=== PATIENT | female | born 1995 | race Caucasian/White ===

== ENCOUNTER 2017-12-21 20:31 | Emergency (ER) | payer BC ==
[~2017-12-21] VITALS: Ht 162.6 cm; Wt 58.9 kg
[2017-12-21 20:34] VITALS: BP 117/75
[2017-12-21] MEDS ORDERED: LIDOCAINE 1%, 10ML INFIL ONE (21:00)
[2017-12-21] MEDS ORDERED: LIDOCAINE-MPF 2%, 2ML ONE (21:27)
[2017-12-21] MEDS ORDERED: LIDOCAINE 2%, 20ML SQ ONE (21:30)
[2017-12-21] MEDS ORDERED: BACITRACIN ZINC OINT 500U/GM, 0.9 GM ONE (21:48)
== END 2017-12-21 22:06 | disposition home or self-care (01) ==
LOC: ED 22:04
DX: S61.211A Laceration without foreign body of left index finger without damage to nail, initial encounter (principal); W26.0XXA Contact with knife, initial encounter; Y93.89 Activity, other specified; Y92.098 Other place in other non-institutional residence as the place of occurrence of the external cause; Y99.8 Other external cause status
CPT/HCPCS: 12041; 99284